=== PATIENT | female | born 2000 | race African-American/Black ===

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

== ENCOUNTER 2020-02-24 22:40 | Emergency (ER) | payer OTHER ==
[2020-02-24 22:44] VITALS: BP 136/91; PULSE 69; RESP 20; TEMP 98.7
--- NOTE | 2020-02-24 22:51 | ED ---
Upper Extremity HPI - General Chief Complaint: Extremity Injury, Upper Stated Complaint: finger injury Time Seen by Provider: 02/24/20 22:48 Source: patient Mode of arrival: ambulatory Limitations: no limitations - History of Present Illness Initial Comments: Briefly healthy 19-year-old female presents the ER for evaluation of pain in the right pinky finger. Patient reports she smashed her finger in a door. She's had persistently worsening pain, she's not been able to see the fingernail due to wearing blue press on fingernails. - Related Data Previous Rx's Medication Instructions Recorded Doxycycline [Vibramycin] 100 mg PO BID 7 Days #14 capsule 08/04/19 Allergies Allergy/AdvReac Type Severity Reaction Status Date / Time ceftriaxone [From Rocephin] Allergy Rash/Hives Verified 02/24/20 22:44 Review of Systems ROS Statement: Those systems with pertinent positive or pertinent negative responses have been documented in the HPI. ROS Other: All systems not noted in ROS Statement are negative. Past Medical History Past Medical History: No Reported History History of Any Multi-Drug Resistant Organisms: None Reported Past Surgical History: No Surgical Hx Reported Past Psychological History: No Psychological Hx Reported Smoking Status: Never smoker Past Alcohol Use History: None Reported Past Drug Use History: None Reported General Exam - General Exam Comments Initial Comments: Physical Exam GENERAL: Patient is well-developed and well-nourished. Patient is nontoxic and well-hydrated and is in no distress. HENT: Normocephalic, Atraumatic. EYES: PERRL, EOMI PULMONARY: Unlabored respirations. CARDIOVASCULAR: RRR Warm and well perfused extremities ABDOMEN: Non-distended SKIN: There is bruising to the right pinky and swelling of the distal portion concerning for likely subungual hematoma : Deferred NEUROLOGIC: Alert and oriented Normal speech Normal gait MUSCULOSKELETAL: Moving all extremities with no apparent injury PSYCHIATRIC: No SI/HI Limitations: no limitations Course Vital Signs 02/24/20 22:42 Temperature 98.7 F Pulse Rate 69 Respiratory 20 Rate Blood Pressure 136/91 O2 Sat by Pulse 100 Oximetry Procedures - Incision & Drainage Consent Obtained: verbal consent Site: hand (Subungual hematoma drainage) Needle Aspiration Performed?: Yes (18g) Irrigation Performed?: No I&D Drainage Obtained: Blood Culture Obtained?: No Patient Tolerated Procedure: well - Nerve Block Consent Obtained: verbal consent Local Anesthetic Used: Other (Lidocaine 1% and Marcaine 0.25% both without Epi) Amount of anesthesia used: 2 Side: right Nerve Blocks: digital (Pinky finger) Procedure Successful: Yes Complications: none Patient Tolerated Procedure: well, no complications Medical Decision Making - Medical Decision Making Patient was seen and evaluated history is obtained from patient X-rays confirm there is no underlying tuft fracture A digital block was performed with lidocaine and bupivacaine, when more c omfortable patient was able to remove her artificial nail, a very large sublingual hematoma was noted and the nail was trephinated, dark blood was drained from under the nail Wound care was discussed the patient patient was discharged home in stable condition Disposition Clinical Impression: Subungual hematoma of finger of right hand Disposition: HOME SELF-CARE Condition: Stable Instructions (If sedation given, give patient instructions): Subungual Hematoma (ED) Is patient prescribed a controlled substance at d/c from ED?: No Referrals: None,Stated [Primary Care Provider] - 1-2 days
[2020-02-24] MEDS ORDERED: LIDOCAINE 1% INJ 10MG/ML (20 ML MDV) SQ ONE (23:37)
[2020-02-24] MEDS ORDERED: BUPIVACAINE (PF) 0.25% 30 ML VIAL SQ STA (23:37)
--- NOTE | 2020-02-24 23:46 | XR ---
EXAMINATION TYPE: XR finger RT DATE OF EXAM: 02/24/2020 COMPARISON: NONE HISTORY: Injury. Pain. TECHNIQUE: 3 views FINDINGS: I see no fracture nor dislocation. Joint spaces appear normal. Soft tissues appear normal. IMPRESSION: Negative right little finger exam.
== END 2020-02-25 00:37 | disposition home or self-care (01) ==
LOC: EC 22:40
DX: S60.051A Contusion of right little finger without damage to nail, initial encounter (principal); Z88.1 Allergy status to other antibiotic agents; W23.0XXA Caught, crushed, jammed, or pinched between moving objects, initial encounter
CPT/HCPCS: 10140; 99283

== ENCOUNTER 2020-04-08 11:57 | Emergency (ER) | payer OTHER ==
[2020-04-08 12:03] VITALS: RESP 18
--- NOTE | 2020-04-08 12:32 | ED ---
Head Injury HPI - General Chief complaint: Head Injury Stated complaint: head injury Time Seen by Provider: 04/08/20 12:14 Source: patient, RN notes reviewed, old records reviewed Mode of arrival: ambulatory Limitations: no limitations - History of Present Illness Initial comments: Patient is a 19 female presents the ER today for evaluation for headache and dizziness and frontal facial swelling after head injury 3 days ago. Patient reports that she was hit on the head with a 2 x 8. Patien reports was throwing the wood piece and externally hit her on the head. She reports that she develops conscious. She initially had a significant headache afterwards and felt as if the room was spinning. She states over the past few days she is continued to have lightheaded and room spinning dizziness. Is also concerned that there is no increased swelling instructed on her face onto the nose. Patient denies any vomiting. Denies any visual changes. She denies neck pain. - Related Data Previous Rx's Medication Instructions Recorded Meclizine [Antivert] 25 mg PO TID #12 tab 04/08/20 Allergies/Adverse reactions: Allergies Allergy/AdvReac Type Severity Reaction Status Date / Time ceftriaxone [From Rocephin] Allergy Rash/Hives Verified 04/08/20 13:09 Review of Systems ROS Statement: Those systems with pertinent positive or pertinent negative responses have been documented in the HPI. ROS Other: All systems not noted in ROS Statement are negative. Past Medical History Past Medical History: No Reported History History of Any Multi-Drug Resistant Organisms: None Reported Past Surgical History: No Surgical Hx Reported Past Psychological History: No Psychological Hx Reported Smoking Status: Never smoker Past Alcohol Use History: None Reported Past Drug Use History: None Reported General Exam - General Exam Comments Initial Comments: alert and oriented 19-year-old female. No acute distress. Limitations: no limitations General appearance: alert, in no apparent distress Head exam: Present: atraumatic, normocephalic, normal inspection, other (Patient is swelling to the anterior forehead.) Eye exam: Present: normal appearance, PERRL, EOMI. Absent: scleral icterus, conjunctival injection, periorbital swelling ENT exam: Present: normal exam, mucous membranes moist Neck exam: Present: normal inspection. Absent: tenderness, meningismus, lymphadenopathy Respiratory exam: Present: normal lung sounds bilaterally. Absent: respiratory distress, wheezes, rales, rhonchi, stridor Cardiovascular Exam: Present: regular rate, normal rhythm, normal heart sounds. Absent: systolic murmur, diastolic murmur, rubs, gallop, clicks GI/Abdominal exam: Present: soft, normal bowel sounds. Absent: distended, tende rness, guarding, rebound, rigid Extremities exam: Present: normal inspection, full ROM, normal capillary refill. Absent: tenderness, pedal edema, joint swelling, calf tenderness Back exam: Present: normal inspection Neurological exam: Present: alert Psychiatric exam: Present: normal affect, normal mood Skin exam: Present: warm, dry, intact, normal color. Absent: rash Course Vital Signs 04/08/20 12:01 Temperature 98.3 F Pulse Rate 64 Respiratory 18 Rate Blood Pressure 136/84 O2 Sat by Pulse 100 Oximetry Medical Decision Making - Medical Decision Making 89-year-old feel presents emergency room today with head injury 3 days ago. Patient reports she's by 2 x 4. She does have significant swelling contusion over the anterior aspect of the forehead. Complains of room spinning dizziness from time to time. Discussed Patient with concussion. She has no acute neurological deficits. CT of the brain is completed and is negative for acute process. Advised Patient to follow-up with PCP. We'll discharge the Patient with meclizine and Zofran. Advised Motrin Tylenol for headaches and pain. - Radiology Data Radiology results: report reviewed CT shows no hemorrhage midline shift or mass effect. No calvarial fracture. Disposition Clinical Impression: Head injury, Concussion Disposition: HOME SELF-CARE Condition: Stable Instructions (If sedation given, give patient instructions): Concussion (ED) Additional Instructions: Patient has a close follow-up with primary care physician and symptoms continue persist. Patient can take that dizziness medication and Motrin or tylenol for pain. Advised close follow-up with primary care doctor. Prescriptions: Meclizine [Antivert] 25 mg PO TID #12 tab Is patient prescribed a controlled substance at d/c from ED?: No Referrals: None,Stated [Primary Care Provider] - 1-2 days Amparo Tirado MD [REFERRING] - 1-2 days Time of Disposition: 13:18
--- NOTE | 2020-04-08 12:57 | CT ---
EXAMINATION TYPE: CT brain wo con DATE OF EXAM: 04/08/2020 HISTORY: headache and dizziness post blunt trauma to frontal bone CT DLP: 2160.4 mGycm. Automated Exposure Control for Dose Reduction was Utilized. TECHNIQUE: CT scan of the head is performed without contrast. COMPARISON: 05/17/2018 CT brain FINDINGS: There is no acute intracranial hemorrhage, midline shift, or mass effect identified. Brain parenchyma appears normal. There is beam hardening artifact through the skull base. The ventricles, sulci, and cisterns are normal in size and configuration. No extra-axial fluid collection. Bones and extracranial soft tissues are intact. The globes are gross ly symmetric. Visualized sinuses and mastoid air cells are clear. IMPRESSION: No acute intracranial hemorrhage, midline shift, or mass effect. No calvarial fracture.
[2020-04-08 13:29] VITALS: BP 123/81; PULSE 72; TEMP 97.9
== END 2020-04-08 13:29 | disposition home or self-care (01) ==
LOC: EC 11:57
DX: S06.0X9A Concussion with loss of consciousness of unspecified duration, initial encounter (principal); Z88.1 Allergy status to other antibiotic agents; W20.8XXA Other cause of strike by thrown, projected or falling object, initial encounter
CPT/HCPCS: 70450; 99283

== ENCOUNTER 2021-05-19 10:30 | Emergency (ER) | payer OTHER ==
[2021-05-19 10:59] VITALS: BP 135/79; PULSE 55; RESP 20; TEMP 99
[2021-05-19] MEDS ORDERED: SODIUM CHLORIDE 0.9% 2,000 ML IV STA (11:05)
[2021-05-19] MEDS ORDERED: KETOROLAC 15 MG/ML 1 ML VIAL IVP STA (11:05)
[2021-05-19] MEDS ORDERED: diphenhydrAMINE 50 MG/ML 1 ML VIAL IVP STA ×2 (11:05→13:10)
[2021-05-19] MEDS ORDERED: METOCLOPRAMIDE 5 MG/ML 2 ML VIAL IVP STA (11:05)
--- NOTE | 2021-05-19 11:34 | ED ---
Nausea/Vomiting/Diarrhea HPI - General Chief complaint: Nausea/Vomiting/Diarrhea Stated complaint: vomiting, near syncope Time Seen by Provider: 05/19/21 11:01 Source: patient, RN notes reviewed Mode of arrival: ambulatory Limitations: no limitations - History of Present Illness Initial comments: 20-year-old female sent emergency Department chief complaint of nausea and vomiting. Patient states that symptoms started around 8:30 this morning. She states she is at sore did not feel well started having multiple rounds of emesis now complaining of upper abdominal pain. No fevers or chills no night sweats no back pain no flank pain. Patient denies any bowel bladder incontinence or tension no dysuria no hematuria denies any chance patient offers no complaints. - Related Data Home Medications Medication Instructions Recorded Confirmed HYDROcodone/APAP 5-325MG [[place] 1 tab PO TID PRN 05/19/21 05/19/21 5-325] Ibuprofen [Motrin] 800 mg PO BID PRN 05/19/21 05/19/21 Previous Rx's Medication Instructions Recorded Ondansetron Odt [Zofran Odt] 4 mg PO Q8HR PRN #10 tab 05/19/21 Allergies Allergy/AdvReac Type Severity Reaction Status Date / Time ceftriaxone [From Rocephin] Allergy Rash/Hives Verified 05/19/21 13:58 Review of Systems ROS Statement: Those systems with pertinent positive or pertinent negative responses have been documented in the HPI. ROS Other: All systems not noted in ROS Statement are negative. Past Medical History Past Medical History: No Reported History History of Any Multi-Drug Resistant Organisms: None Reported Past Surgical History: No Surgical Hx Reported Past Psychological History: No Psychological Hx Reported Smoking Status: Never smoker Past Alcohol Use History: None Reported Past Drug Use History: None Reported General Exam Limitations: no limitations General appearance: alert, in no apparent distress Head exam: Present: atraumatic, normocephalic, normal inspection Eye exam: Present: normal appearance, PERRL, EOMI. Absent: scleral icterus, conjunctival injection, periorbital swelling ENT exam: Present: normal exam, normal oropharynx, mucous membranes moist Neck exam: Present: normal inspection. Absent: tenderness, meningismus, lymphadenopathy Respiratory exam: Present: normal lung sounds bilaterally. Absent: respiratory distress, wheezes, rales, rhonchi, stridor Cardiovascular Exam: Present: regular rate, normal rhythm, normal heart sounds. Absent: systolic murmur, diastolic murmur, rubs, gallop, clicks GI/Abdominal exam: Present: soft, normal bowel sounds. Absent: distended, tenderness, guarding, rebound, rigid Back exam: Absent: CVA tenderness (R), CVA tenderness (L) Neurological exam: Present: alert, oriented X3 Skin exam: Present: warm, dry, intact, normal color. Absent: rash Course Vital Signs 05/19/21 10:56 Temperature 99 F Pulse Rate 55 L Respiratory 20 Rate Blood Pressure 135/79 O2 Sat by Pulse 100 Oximetry Medical Decision Making - Medical Decision Making Patient was well hydrated, given antiemetics feels greatly improved. Patient did have some moderate amount of wbcs in urinalysis. Patient states she just was prescribed. Anybody yesterday. Patient discharged with nausea meds and return parameters were discussed. - Lab Data Result diagrams: 05/19/21 11:19 05/19/21 11:19 Lab Results 05/19/21 05/19/21 05/19/21 Range/Units 11:19 11:19 11:52 WBC 11.7 H (4.0-11.0) k/uL RBC 4.81 (3.80-5.40) m/uL Hgb 15.1 (11.4-16.0) gm/dL Hct 44.2 (34.0-46.0) % MCV 91.8 (80.0-100.0) fL MCH 31.4 (25.0-35.0) pg MCHC 34.2 (31.0-37.0) g/dL RDW 12.9 (11.5-15.5) % Plt Count 329 (150-450) k/uL MPV 7.3 Neutrophils % 72 % Lymphocytes % 22 % Monocytes % 2 % Eosinophils % 2 % Basophils % 0 % Neutrophils # 8.4 H (1.3-7.7) k/uL Lymphocytes # 2.6 (1.0-4.8) k/uL Monocytes # 0.3 (0-1.0) k/uL Eosinophils # 0.2 (0-0.7) k/uL Basophils # 0.0 (0-0.2) k/uL Sodium 141 (137-145) mmol/L Potassium 3.6 (3.5-5.1) mmol/L Chloride 108 H (98-107) mmol/L Carbon Dioxide 17 L (22-30) mmol/L Anion Gap 16 mmol/L BUN 8 (7-17) mg/dL Creatinine 0.82 (0.52-1.04) mg/dL Est GFR (CKD-EPI)AfAm >90 (>60 ml/min/1.73 sqM) Est GFR (CKD-EPI)NonAf >90 (>60 ml/min/1.73 sqM) Glucose 152 H (74-99) mg/dL Calcium 10.7 H (8.4-10.2) mg/dL Total Bilirubin 0.8 (0.2-1.3) mg/dL AST 34 (14-36) U/L ALT 21 (4-34) U/L Alkaline Phosphatase 90 (38-126) U/L Total Protein 8.8 H (6.3-8.2) g/dL Albumin 5.4 H (3.5-5.0) g/dL Amylase 89 (30-110) U/L Lipase 76 (23-300) U/L Urine Color Yellow Urine Appearance Clear (Clear) Urine pH 8.0 (5.0-8.0) Ur Specific [place] 1.014 (1.001-1.035) Urine Protein Negative (Negative) Urine Glucose (UA) Negative (Negative) Urine Ketones 2+ H (Negative) Urine Blood Negative (Negative) Urine Nitrite Negative (Negative) Urine Bilirubin Negative (Negative) Urine Urobilinogen <2.0 (<2.0) mg/dL Ur Leukocyte Esterase Trace H (Negative) Urine RBC 2 (0-5) /hpf Urine WBC 21 H (0-5) /hpf Ur Squamous Epith Cells <1 (0-4) /hpf Urine Mucus Rare H (None) /hpf Urine HCG, Qual (Not Detectd) 05/19/21 Range/Units 11:52 WBC (4.0-11.0) k/uL RBC (3.80-5.40) m/uL Hgb (11.4-16.0) gm/dL Hct (34.0-46.0) % MCV (80.0-100.0) fL MCH (25.0-35.0) pg MCHC (31.0-37.0) g/dL RDW (11.5-15.5) % Plt Count (150-450) k/uL MPV Neutrophils % % Lymphocytes % % Monocytes % % Eosinophils % % Basophils % % Neutrophils # (1.3-7.7) k/uL Lymphocytes # (1.0-4.8) k/uL Monocytes # (0-1.0) k/uL Eosinophils # (0-0.7) k/uL Basophils # (0-0.2) k/uL Sodium (137-145) mmol/L Potassium (3.5-5.1) mmol/L Chloride (98-107) mmol/L Carbon Dioxide (22-30) mmol/L Anion Gap mmol/L BUN (7-17) mg/dL Creatinine (0.52-1.04) mg/dL Est GFR (CKD-EPI)AfAm (>60 ml/min/1.73 sqM) Est GFR (CKD-EPI)NonAf (>60 ml/min/1.73 sqM) Glucose (74-99) mg/dL Calcium (8.4-10.2) mg/dL Total Bilirubin (0.2-1.3) mg/dL AST (14-36) U/L ALT (4-34) U/L Alkaline Phosphatase (38-126) U/L Total Protein (6.3-8.2) g/dL Albumin (3.5-5.0) g/dL Amylase (30-110) U/L Lipase (23-300) U/L Urine Color Urine Appearance (Clear) Urine pH (5.0-8.0) Ur Specific [place] (1.001-1.035) Urine Protein (Negative) Urine Glucose (UA) (Negative) Urine Ketones (Negative) Urine Blood (Negative) Urine Nitrite (Negative) Urine Bilirubin (Negative) Urine Urobilinogen (<2.0) mg/dL Ur Leukocyte Esterase (Negative) Urine RBC (0-5) /hpf Urine WBC (0-5) /hpf Ur Squamous Epith Cells (0-4) /hpf Urine Mucus (None) /hpf Urine HCG, Qual Not Detected (Not Detectd) Disposition Clinical Impression: Gastroenteritis Disposition: HOME SELF-CARE Condition: Stable Instructions (If sedation given, give patient instructions): Acute Nausea and Vomiting (ED) Additional Instructions: Please return to the Emergency Department if symptoms worsen or any other concerns. Prescriptions: Ondansetron Odt [Zofran Odt] 4 mg PO Q8HR PRN #10 tab PRN Reason: Nausea Is patient prescribed a controlled substance at d/c from ED?: No Referrals: None,Stated [Primary Care Provider] - 1-2 days Time of Disposition: 14:02
[2021-05-19 11:36] LABS: Basophils % (A) 0 %; Eosinophils # (A) 0.2 k/uL (0-0.7); Eosinophils % (A) 2 %; HCT 44.2 % (34.0-46.0); HGB 15.1 gm/dL (11.4-16.0); Lymphocytes # (A) 2.6 k/uL (1.0-4.8); Lymphocytes % (A) 22 %; MCH 31.4 pg (25.0-35.0); MCHC 34.2 g/dL (31.0-37.0); MCV 91.8 fL (80.0-100.0); Mean Platelet Volume 7.3; Monocytes # (A) 0.3 k/uL (0-1.0); Monocytes % (A) 2 %; Neutrophils # (A) 8.4 k/uL (1.3-7.7); Neutrophils % (A) 72 %; Platelet Count 329 k/uL (150-450); RBC 4.81 m/uL (3.80-5.40); RDW 12.9 % (11.5-15.5); WBC 11.7 k/uL (4.0-11.0)
[2021-05-19 12:02] LABS: ALT 21 U/L (4-34); African American GFR (CKD) >90 (>60 ml/min/1.73 sqM); Albumin 5.4 g/dL (3.5-5.0); Amylase 89 U/L (30-110); Anion Gap 16 mmol/L; Blood Urea Nitrogen 8 mg/dL (7-17); Calcium 10.7 mg/dL (8.4-10.2); Carbon Dioxide 17 mmol/L (22-30); Chloride 108 mmol/L (98-107); Glucose 152 mg/dL (74-99); Lipase 76 U/L (23-300); Non-African American GFR(CKD) >90 (>60 ml/min/1.73 sqM); Sodium 141 mmol/L (137-145); Total Bilirubin 0.8 mg/dL (0.2-1.3); Total Protein 8.8 g/dL (6.3-8.2)
[2021-05-19 12:06] LABS: Potassium 3.6 mmol/L (3.5-5.1)
[2021-05-19 12:07] LABS: AST 34 U/L (14-36); Alkaline Phosphatase 90 U/L (38-126)
[2021-05-19] MEDS ORDERED: ONDANSETRON 4 MG/2 ML VIAL IVP STA (12:29)
[2021-05-19] MEDS ORDERED: FAMOTIDINE 20 MG/2 ML VIAL IV STA (12:29)
[2021-05-19 12:38] LABS: Appearance,Urine Clear (Clear); Bilirubin,Urine Negative (Negative); Blood,Urine Negative (Negative); Color,Urine Yellow; Glucose,Urine (UA) Negative (Negative); Ketones,Urine 2+ (Negative); Leukocyte Esterase,Urine Trace (Negative); Mucus,Urine Rare /hpf; Nitrite,Urine Negative (Negative); Protein,Urine Negative (Negative); RBC,Urine 2 /hpf (0-5); Specific Gravity,Urine 1.014 (1.001-1.035); Squamous Epithelial Cell,Urine <1 /hpf (0-4); Urobilinogen,Urine <2.0 mg/dL (<2.0); WBC,Urine 21 /hpf (0-5)
[2021-05-19] MEDS ORDERED: LORazepam 2 MG/ML INJ IV STA (13:11)
== END 2021-05-19 14:10 | disposition home or self-care (01) ==
LOC: EC 10:30
DX: K52.9 Noninfective gastroenteritis and colitis, unspecified (principal); Z88.1 Allergy status to other antibiotic agents
CPT/HCPCS: 99284; 96374; 96375 ×5; 96376; 96361 ×3; 36415; 80053; 82150; 83690; 85025; 81001; 81025; 87086; J2060; J1200; J2765; J2405; J1885

== ENCOUNTER → 2021-11-02 | Outpatient (CLI) | payer OTHER ==
--- NOTE | 2021-11-02 09:39 | NM ---
EXAMINATION TYPE: NM hepatobiliary w EF DATE OF EXAM: 11/02/2021 COMPARISON: NONE HISTORY: R10.9 abdominal pain TECHNIQUE: After the intravenous administration of 4.9 mCi Tc 99m Mebrofenin hepatobiliary scintigrap hy is performed. Immediate images post injection. FINDINGS: There is satisfactory initial accumulation of tracer by the liver. The gallbladder is visualized wit hin 6 minutes. The small bowel activity is noted within 12 minutes. At one hour 8 ounces of oral en sure plus is given to mimic CCK and gallbladder ejection fraction is calculated at 5 %. IMPRESSION: Diminished gallbladder ejection fraction may reflect chronic cholecystitis and/or biliary dyskinesia.
== END | disposition home or self-care (01) ==
LOC: RADNMMAIN 06:57
PROVIDERS: ATTEND Physician Assistant
DX: K82.8 Other specified diseases of gallbladder (principal)
CPT/HCPCS: 78226; A9537

== ENCOUNTER → 2021-11-05 | Outpatient (CLI) | payer OTHER ==
--- NOTE | 2021-11-06 06:37 | XR ---
EXAMINATION TYPE: XR lumbar spine with bend/flex, 9 views DATE OF EXAM: 11/05/2021 Comparison: 10/17/2014 Clinical History: 21-year-old female pain since fall 8 years ago. M43.16; M54.16 Findings: 5 lumbar type vertebral bodies. On the right, unable to exclude subtle pars defects at L2, L3, and L5 . Given patient's persistent pain, consider CT for more detailed assessment of the bony anatomy. Ther e is mild facet spurring in the lower lumbar spine. Vertebral body heights and disc interspaces are p reserved. Alignment is maintained. No dynamic subluxation seen on flexion or extension. Impression: 1. On the oblique view, unable to exclude subtle pars defects on the right at L2, L3, and L5. Given p atient's persistent pain, consider CT for more detailed assessment of the bony anatomy. 2. No vertebral compression collapse or malalignment. 3. No dynamic subluxation with flexion-extension.
== END | disposition home or self-care (01) ==
LOC: RADXRMAIN 14:50
PROVIDERS: ATTEND Neurological Surgery
DX: M43.16 Spondylolisthesis, lumbar region (principal); M54.16 Radiculopathy, lumbar region
CPT/HCPCS: 72114

== ENCOUNTER → 2023-08-01 | Outpatient (CLI) | payer OTHER ==
--- NOTE | 2023-08-02 13:00 | FL ---
EXAMINATION TYPE: FL UGI air DATE OF EXAM: 08/01/2023 COMPARISON: None HISTORY: Right upper quadrant pain and nausea TECHNIQUE: A double air contrast UGI study is performed. Fluoroscopy time: 1 minute 24 seconds. DAP: 4256.32 Images: 151 FINDINGS: Esophagus dilates to normal caliber and has normal contour to the gastroesophageal junction. Gastroes ophageal junction opens to normal caliber. No intraluminal or extramural defects is evident. Minimal reflux in the distal esophagus is present. There is complete stripping of the esophageal bolus in the horizontal drinking position. Fundus body and the antrum of the stomach are well visualized. No intraluminal or extramural defects are evident. Duodenal cap and sweep are in normal position. Duodenal fold hypertrophy is present. Correlate for ac naomi duodenitis. IMPRESSION: 1. Critical consideration for acute duodenitis. 2. Minimal reflux
== END | disposition home or self-care (01) ==
LOC: RADUSWWP 10:51
PROVIDERS: ATTEND Family Medicine
DX: K21.9 Gastro-esophageal reflux disease without esophagitis (principal); R10.11 Right upper quadrant pain; R11.2 Nausea with vomiting, unspecified
CPT/HCPCS: 74246

== ENCOUNTER → 2023-08-11 | Outpatient (CLI) | payer OTHER ==
--- NOTE | 2023-08-11 12:47 | US ---
EXAMINATION TYPE: US pelvic complete DATE OF EXAM: 08/11/2023 COMPARISON: NONE CLINICAL INDICATION: Female, 22 years old with history of R10.11 RIGHT UPPER QUADRANT PAIN; On Depo s hot. No pelvic concerns per patient. TECHNIQUE: Transabdominal (TA). Transabdominal sonographic images of the pelvis were acquired. Date of LMP: Unknown due to Depo, G0 EXAM MEASUREMENTS: Uterus: 7.2 x 3.3 x 2.4 cm Endometrial Stripe: 0.4 cm Right Ovary: 3.3 x 1.4 x 1.5 cm Left Ovary: 3.1 x 2.8 x 1.7 cm 1. Uterus: Anteverted and otherwise wnl 2. Endometrium: wnl 3. Right Ovary: Unremarkable 4. Left Ovary: 2.0 cm dominant follicle or functional cyst. 5. Bilateral Adnexa: wnl 6. Posterior cul-de-sac: no free fluid IMPRESSION: A 2.0 cm dominant follicle or functional cyst of the left ovary. Otherwise, unremarkable transabdomin al sonographic examination of the pelvis.
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
== END | disposition home or self-care (01) ==
LOC: RADUSWWP 08:53
PROVIDERS: ATTEND Family Medicine
DX: R10.11 Right upper quadrant pain (principal); R11.2 Nausea with vomiting, unspecified; R10.2 Pelvic and perineal pain; K83.8 Other specified diseases of biliary tract; N83.202 Unspecified ovarian cyst, left side
CPT/HCPCS: 76700; 76856

== ENCOUNTER 2023-10-14 09:51 | Day surgery (SDC) | payer OTHER ==
[2023-10-12 14:35] VITALS: BMI 25.8
[~2023-10-14 09:51] MED LIST: LIDOCAINE 1% (10MG/ML) FOR IV START INTRADERMA PRN
[2023-10-14] MEDS: LACTATED RINGERS 1,000 ML IV SCH (10:29)
[2023-10-14 10:44] VITALS: RESP 16; TEMP 97.2
[2023-10-14] MEDS ORDERED: PROPOFOL 10 MG/ML 20 ML VIAL IV ONE (11:55)
[2023-10-14] MEDS ORDERED: LIDOCAINE 1% INJ 10MG/ML (20 ML MDV) ONE (11:55)
--- NOTE | 2023-10-14 12:05 | P.PCN ---
Date of Procedure: 10/14/23 Procedure(s) Performed: BRIEF HISTORY: Patient is a 23-year-old, pleasant, of intermittent female scheduled for an upper endoscopy as a part of evaluation of chronic persistent epigastric pain for the last 2 years duration. She is been Prilosec 20 mg daily with no help.. PROCEDURE PERFORMED: Esophagogastroduodenoscopy with biopsy . PREOPERATIVE DIAGNOSIS: Chronic epigastric pain of 2 years duration IV sedation per anesthesia. PROCEDURE: After informed consent was obtained, the patient was brought into the endoscopy unit. IV sedation was administered by Anesthesia under continuous monitoring. Initially the Olympus GIF-140 video endoscope was inserted into the mouth. Esophagus intubated without any difficulty. It was gradually advanced into the stomach and duodenum and carefully examined. The bulb and the second part of the duodenum appeared normal . Biopsies were done from the duodenum to rule out celiac disease. . The scope at this time was withdrawn to the stomach, adequately insufflated with air, and upon careful examination, mucosa of the antrum had mild gastritis and biopsies were done from this area. Mucosa of the , body, cardia and the fundus appeared normal. The scope was then withdrawn into the esophagus. The GE junction was located at 39 cm from the incisors. The eso phagus appeared normal. There were no erosions or ulcerations seen , biopsies were done from the distal esophagus and the patient tolerated the procedure well. IMPRESSION: 1.. Mild antral gastritis 2.. No evidence of esophagitis or peptic ulcer disease RECOMMENDATIONS: The findings of this examination were discussed with the patient as well as a family. She was advised to follow with the biopsy results. Follow up in office in 2 weeks..
[2023-10-14 12:31] VITALS: BP 131/81; PULSE 76
== END 2023-10-14 12:53 | disposition home or self-care (01) ==
LOC: ORWHC2ENDO 09:51
PROVIDERS: ATTEND Internal Medicine Gastroenterology
DX: K29.50 Unspecified chronic gastritis without bleeding (principal); F17.290 Nicotine dependence, other tobacco product, uncomplicated; Z79.899 Other long term (current) drug therapy; F41.9 Anxiety disorder, unspecified; F32.A Depression, unspecified; K21.9 Gastro-esophageal reflux disease without esophagitis
CPT/HCPCS: 81025; 43239; J2001; J2704; 88305

== ENCOUNTER 2024-03-09 13:35 | Emergency (ER) | payer OTHER ==
[2024-03-09] MEDS ORDERED: SODIUM CHLORIDE 0.9% 1,000 ML BAG ONE (16:40)
[2024-03-09] MEDS ORDERED: ONDANSETRON 4 MG/2 ML VIAL ONE (17:06)
[2024-03-09] MEDS ORDERED: PANTOPRAZOLE 40 MG/10 ML VIAL ONE (17:06)
[2024-03-09] MEDS ORDERED: HYDROmorphone 0.5 MG/0.5 ML SYRINGE ONE (17:59)
[2024-03-09] MEDS ORDERED: ONDANSETRON 4 MG ODT STARTER PACK 2 TAB BTL ONE (21:25)
== END 2024-03-09 21:40 | disposition home or self-care (01) ==
LOC: EC 13:35
DX: K52.9 Noninfective gastroenteritis and colitis, unspecified (principal)
CPT/HCPCS: 96361; 96374; 96375; 99284

== ENCOUNTER 2024-04-13 12:06 | Inpatient (IN) | payer MEDICAID, OTHER ==
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
[2024-04-13 13:40] LABS: Amphetamine Screen,Urine Not Detected (NotDetected); Barbiturate Screen,Urine Not Detected (NotDetected); Benzodiazepines Screen,Urine Not Detected (NotDetected); Cocaine Screen,Urine Not Detected (NotDetected); Methadone Screen, Urine Not Detected (NotDetected); Opiate Screen,Urine Not Detected (NotDetected); Oxycodone Screen, Urine Not Detected (NotDetected); Phencyclidine Screen,Urine Not Detected (NotDetected); Tricyclic Antidepressant,Urine Detected (NotDetected); Urn Cannabinoid Scrn Detected (NotDetected)
[2024-04-13] MEDS ORDERED: MAG HYDROX/AL HYDROX/SIMETH 355 ML BOTTLE PO PRN (20:23)
[2024-04-13] MEDS ORDERED: HALOPERIDOL LACTATE 5 MG/ML 1 ML VIAL IM PRN (20:23)
[2024-04-13] MEDS ORDERED: haloperidoL 5 MG TAB PO PRN (20:23)
[2024-04-13] MEDS ORDERED: LORazepam 2 MG/ML INJ IM PRN (20:23)
[2024-04-13] MEDS ORDERED: LORazepam 1 MG TAB PO PRN (20:23)
[2024-04-13] MEDS ORDERED: MAGNESIUM HYDROXIDE 2,400 MG/30 ML CUP PO PRN (20:23)
[2024-04-13] MEDS: hydrOXYzine HCL 25 MG TAB PO SCH (22:22)
[2024-04-13] MEDS: VENLAFAXINE HCL ER 75 MG CAP PO SCH (22:23)
[2024-04-14 00:06] LABS: Appearance,Urine Clear (Clear); Bacteria,Urine Rare /hpf; Bilirubin,Urine Negative (Negative); Blood,Urine Moderate (Negative); Color,Urine Colorless; Glucose,Urine (UA) Negative (Negative); Ketones,Urine Negative (Negative); Leukocyte Esterase,Urine Negative (Negative); Nitrite,Urine Negative (Negative); Protein,Urine Negative (Negative); Specific Gravity,Urine 1.011 (1.001-1.035); Squamous Epithelial Cell,Urine 1 /hpf (0-4); Urobilinogen,Urine <2.0 mg/dL (<2.0); WBC,Urine <1 /hpf (0-5)
[2024-04-14 07:30] LABS: Basophils # (A) 0.1 k/uL (0-0.2); Basophils % (A) 1 %; Eosinophils # (A) 0.2 k/uL (0-0.7); Eosinophils % (A) 3 %; HCT 42.2 % (34.0-46.0); HGB 13.2 gm/dL (11.4-16.0); Lymphocytes # (A) 1.9 k/uL (1.0-4.8); Lymphocytes % (A) 39 %; MCHC 31.2 g/dL (31.0-37.0); MCV 92.8 fL (80.0-100.0); Mean Platelet Volume 6.4; Monocytes # (A) 0.2 k/uL (0-1.0); Monocytes % (A) 4 %; Neutrophils # (A) 2.4 k/uL (1.3-7.7); Neutrophils % (A) 50 %; Platelet Count 306 k/uL (150-450); RBC 4.54 m/uL (3.80-5.40); RDW 12.8 % (11.5-15.5); WBC 4.9 k/uL (3.8-10.6)
[2024-04-14 07:45] LABS: ALT 15 U/L (4-34); AST 24 U/L (14-36); African American GFR (CKD) >90 (>60 ml/min/1.73 sqM); Albumin 4.7 g/dL (3.5-5.0); Alkaline Phosphatase 82 U/L (38-126); Anion Gap 8 mmol/L; Blood Urea Nitrogen 8 mg/dL (7-17); Carbon Dioxide 28 mmol/L (22-30); Chloride 104 mmol/L (98-107); Glucose 81 mg/dL (74-99); Non-African American GFR(CKD) >90 (>60 ml/min/1.73 sqM); Potassium 4.8 mmol/L (3.5-5.1); Sodium 140 mmol/L (137-145); Total Bilirubin 0.7 mg/dL (0.2-1.3); Total Protein 7.7 g/dL (6.3-8.2)
[2024-04-14] MEDS: NICOTINE 14MG/24HR PATCH TRANSDERM SCH (09:45)
[2024-04-14] MEDS: ACETAMINOPHEN TAB 325 MG TAB PO PRN (10:34)
[2024-04-14] MEDS: SERTRALINE 25 MG TAB PO STA (11:44)
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
[2024-04-14 12:34] LABS: Chol/HDL Ratio 5.06 Ratio; LDL Cholesterol,Calculated 146.1 mg/dL (0.0-131.0)
[2024-04-14] MEDS: MIRTAZAPINE 15 MG TAB PO SCH (21:23)
[2024-04-15] MEDS: SERTRALINE 50 MG TAB PO SCH (09:16)
[2024-04-15] MEDS: IBUPROFEN 600 MG TAB PO PRN (09:17)
--- NOTE | 2024-04-15 15:45 | P.PN ---
Progress Note - Text Progress Note Date: 04/15/24 Interval history: Patient was seen wandering the hallways and was directable and agreeable to s peak with engineering technical writer. She was seen socializing with [facility]. She appears to have an improvement in affect today, states that her mood and anxiety been gradually improving. Denies any problems with her medications at this time. Did state that it was hard to sleep with the lower dose of Remeron requesting an increase for tonight. Denies any flashbacks or nightmares, denies any problems with appetite. At this time patient denies any suicidal or homicidal ideations intent or plan. Denies any Auditory or visual hallucinations. Patient denies any side effects from the medications and has been compliant with meds. Mental status exam: General Appearance: Patient appears to be stated age is alert, directable, and cooperative. Behavior: No agitated behavior. Patient is calm and directable, more cooperative today Speech: Patient's speech is fluent and nonpressured. Mood/Affect: Mood is improving mildly, affect is congruent and constricted. Suicidality/Homicidality: Patient denies having any suicidal or homicidal ideation intent or plan. Perceptions: Patient denies any auditory or visual hallucinations. Though content/process: There is no evidence of any delusional thought content and thought process is linear and goal-directed. Memory and concentration: AOX3, grossly intact for the purposes of this session Judgment and insight: improving mildly Assessment/Plan: Continue with current diagnosis. Patient continues to meet criteria for inpatient psychiatric admission for symptom stabilization and safety. Patient will be maintained on current psychotropic medication regimen. Monitor for medication compliance and for any psychotropic medication side effects. Will continue to monitor ongoing response to treatment. Encouraged participation in milieu. Likely discharge in 2 to 3 days back home.
[2024-04-15] MEDS: MIRTAZAPINE 15 MG TAB PO SCH (20:35)
--- NOTE | 2024-04-15 20:40 | CONS ---
CONSULTATION CHIEF COMPLAINT: Major depression with suicidal thoughts. HISTORY OF PRESENT ILLNESS: This is a 23-year-old female, presented to the emergency room with major depression with thoughts of killing herself. She has otherwise been healthy. REVIEW OF SYSTEMS: She denies headaches, chest pain, shortness of breath, abdominal pain, urinary complaints, etc. Past medical history, family history, personal and social histories can all be found in her initial summary. PHYSICAL EXAMINATION: GENERAL: She seems to be awake, alert, and pleasant. VITAL SIGNS: Normal. HEAD, EARS, EYES, NOSE, MOUTH, AND THROAT: Normal. CHEST: Clear. CARDIAC: Normal. ABDOMEN: Soft, nontender. EXTREMITIES: Normal. IMPRESSION: 1. Major depression. 2. Suicidal thoughts. RECOMMENDATIONS: None. MMODL / IJN: [id number] /
[2024-04-16 06:27] VITALS: RESP 18
[2024-04-16] MEDS: CYCLOBENZAPRINE 10 MG TAB PO PRN (08:30)
--- NOTE | 2024-04-16 10:56 | P.PN ---
Progress Note - Text Progress Note Date: 04/16/24 Interval History: Patient was seen [wandering the hallways] and was directable and agreeable to speak with telegraphic typewriter operator in the office. Patient states that she is fine today. States she wants to stand because her back hurts. She states that she wants to leave. She becomes mildly irritable when she learns that she is not being discharged today. Middleware Developer explained the discharge process to her, and safe discharge. She endorses a good appetite, and good sleep. At this time patient denies any suicidal or homical ideations, intent or plan. Patient denies any auditory, visual hallucinations and denies any paranoia or delusions. Patient denies any side effects from the medications and has been compliant with meds. Mental Status Exam: General Appearance: Patient appears to be stated age is alert, directable, and cooperative. Behavior: No agitated behavior. Patient is calm and directable, more cooperative today Speech: Patient's speech is fluent and nonpressured. Mood/Affect: Mood is improving mildly, affect is congruent and constricted. Suicidality/Homicidality: Patient denies having any suicidal or homicidal ideation intent or plan. Perceptions: Patient denies any auditory or visual hallucinations. Though content/process: There is no evidence of any delusional thought content and thought process is linear and goal-directed. Memory and concentration: AOX3, grossly intact for the purposes of this session Judgment and insight: improving mildly Assessment: Major depressive disorder, without psychotic features Anxiety disorder unspecified Cannabis use disorder Nicotine dependence PLAN: -Patient is admitted under voluntary status to [facility] for stabilization of psychiatric symptoms and safety. Patient has signed adult voluntary form and medication consent and is placed in patient's chart. -Medications: Zoloft 50 mg daily for mood/anxiety, increase Remeron 30 mg nightly for anxiety/mood/appetite/insomnia -Ativan and Haldol PRN for agitation/aggression -NRT -nicotine patch - on board for discharge planning. Encourage patient to participate in groups to work on coping skills. Likely discharge tomorrow back home.
[2024-04-17 08:42] VITALS: BP 111/71; PULSE 96; TEMP 97.9
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
[2024-04-24] MEDS ORDERED: ERGOCALCIFEROL 1,250 MCG (50,000 IU) CAPSULE PO SCH (09:00)
== END 2024-04-17 14:23 | disposition home or self-care (01) | DRG 754 ==
LOC: EC 12:06 → 3MHU 19:39
PROVIDERS: ADMIT Psychiatry & Neurology Psychiatry; ATTEND Psychiatry & Neurology Psychiatry
DX: F32.9 Major depressive disorder, single episode, unspecified (principal); F12.10 Cannabis abuse, uncomplicated; Z71.51 Drug abuse counseling and surveillance of drug abuser; F17.200 Nicotine dependence, unspecified, uncomplicated; Z71.6 Tobacco abuse counseling; F41.9 Anxiety disorder, unspecified; G47.00 Insomnia, unspecified; R45.851 Suicidal ideations; Z79.899 Other long term (current) drug therapy; Z28.21 Immunization not carried out because of patient refusal; Z88.1 Allergy status to other antibiotic agents
CPT/HCPCS: 80053; 80061; 80306; 81001; 81025; 82075; 83036; 84439; 84443; 85025; 87635; 99285